=== PATIENT | female | born 1965 | race Caucasian/White ===

== ENCOUNTER 2017-01-05 19:16 | Emergency (ER) | payer MEDICAID ==
[~2017-01-05] VITALS: Ht 160 cm; Wt 80.0 kg
[2017-01-05] MEDS ORDERED: LEVO50 PO (19:33)
[2017-01-05 21:39] VITALS: BP 126/79
== END 2017-01-05 21:36 | disposition home or self-care (01) ==
LOC: EMS 19:18
DX: H66.92 Otitis media, unspecified, left ear (principal); E03.9 Hypothyroidism, unspecified
CPT/HCPCS: 99283

== ENCOUNTER 2021-07-11 10:23 | Emergency (ER) | payer MEDICAID ==
[~2021-07-11] VITALS: Ht 165.1 cm; Wt 78.0 kg
[~2021-07-11 10:23] MED LIST: LEVO50 PO
[2021-07-11 12:27] VITALS: BP 121/58
[2021-07-11] MEDS ORDERED: CEPH500C3 PO (12:31)
== END 2021-07-11 12:49 | disposition home or self-care (01) ==
LOC: EMS 10:25
DX: L02.31 Cutaneous abscess of buttock (principal); R10.9 Unspecified abdominal pain
CPT/HCPCS: 99283; Z7502

== ENCOUNTER 2022-06-27 08:21 | Emergency (ER) | payer MEDICAID, OTHER ==
[~2022-06-27] VITALS: Ht 165.1 cm; Wt 68.2 kg
[~2022-06-27 08:21] MED LIST changes: +CEPH-558 PO
[2022-06-27 08:22] VITALS: BP 139/69
[2022-06-27] MEDS ORDERED: ONDANSETRON HCL 4 MG TABLET PO ONE (10:00)
[2022-06-27] MEDS ORDERED: BENZONATATE 100 MG CAPSULE PO ONE (10:00)
[2022-06-27] MEDS ORDERED: ACETAMINOPHEN 500 MG TABLET PO ONE (10:00)
[2022-06-27] MEDS ORDERED: IBUPROFEN 600 MG TABLET PO ONE (10:00)
[2022-06-27 10:31] LABS: COVID AG,FIA SOURCE NASOPHARYNGEAL
[2022-06-27 10:54] LABS: INFLUENZA TYPE A NEGATIVE FOR TYPE A (NEGATIVE); INFLUENZA TYPE B NEGATIVE FOR TYPE B (NEGATIVE)
[2022-06-27] MEDS ORDERED: IBUP-1554 PO (11:17)
[2022-06-27] MEDS ORDERED: BENZ-227 PO (11:17)
[2022-06-27] MEDS ORDERED: GUAIFDM PO (11:17)
[2022-06-27] MEDS ORDERED: ACET-2080 PO (11:17)
== END 2022-06-27 11:32 | disposition home or self-care (01) ==
LOC: EMS 08:27
DX: J40 Bronchitis, not specified as acute or chronic (principal); J06.9 Acute upper respiratory infection, unspecified; E03.9 Hypothyroidism, unspecified; Z20.822 Contact with and (suspected) exposure to COVID-19
CPT/HCPCS: 99284; 71045; 87426; 87804; Q0162